=== PATIENT | female | born 1940 | race Caucasian/White ===

== ENCOUNTER 2017-02-17 10:03 | Day surgery (SDC) | payer MEDICARE, BC ==
[2017-02-17] MEDS ORDERED: PROPOFOL 10 MG/ML VIAL IV ONE (10:04)
[2017-02-17] MEDS ORDERED: LIDOCAINE 2% MDV (20MG/ML) 20ML VIAL IV ONE (10:04)
--- NOTE | 2017-02-17 13:50 | Operative Note ---
DATE OF SURGERY: 02/17/2017 OPERATION: COLONOSCOPY with cold snare and hot snare polypectomies and hemoclip application. PREOPERATIVE DIAGNOSIS: Polyps. POSTOPERATIVE DIAGNOSES: 1. Multiple polyps. 2. Sigmoid diverticulosis. PROCEDURE: After informed consent was obtained from the patient, she was placed in the left lateral decubitus position in the endoscopy suite, sedated and monitored by the department of anesthesia. Digital rectal examination was unremarkable. A well-lubricated [id number] colonoscope was inserted into the rectum and advanced into the sigmoid colon where there was a pedunculated polyp removed with a polypectomy snare and ERBE Endocut current. There was some malfunction of the cautery. Some of it was removed with a cold snare. There was minimal bleeding noted at the site. The endoscope was then advanced to the cecum. Preparation quality was good. The cecum and ascending colon were unremarkable. The transverse colon revealed diminutive polyp removed with a cold forceps. The descending colon revealed 3 polyps, 2 removed with a cold forceps and 1 removed with a cold snare. These polyps ranged in size from 4-5 mm. In the sigmoid colon there were 2 additional sessile polyps removed with a cold snare. They ranged in size from 5-6 mm. There was minimal bleeding at one of the sites and as a result, the hemoclip was applied. There was no bleeding that persisted. The previous partially hot snare polypectomy site was observed and another hemoclip was applied to this. There was no bleeding noted at the conclusion of the procedure. There were scattered sigmoid diverticula noted. The rectum was unremarkable in forward and J-turn views. The endoscope was straightened, the rectal ampulla deflated, and the endoscope was removed. RECOMMENDATIONS: The patient should follow a soft low-fiber diet for the next 2 weeks and a high-fiber diet thereafter. I recommend a repeat exam in 3 years pending tissue histology. As always, thank you for allowing me to participate in the healthcare of your patients. CC: Dr. Alcira EL
== END 2017-02-17 12:21 | disposition home or self-care (01) ==
LOC: HOP 10:03
PROVIDERS: ATTEND Internal Medicine Gastroenterology
DX: D12.5 Benign neoplasm of sigmoid colon (principal); D12.3 Benign neoplasm of transverse colon; I10 Essential (primary) hypertension; E78.00 Pure hypercholesterolemia, unspecified

== ENCOUNTER 2018-08-24 11:16 | Day surgery (SDC) | payer MEDICARE, BC ==
[2018-08-24] MEDS ORDERED: FENTANYL PF 100MCG/2ML VIAL IV ONE (11:17)
[2018-08-24] MEDS ORDERED: PROPOFOL 10 MG/ML VIAL IV ONE (11:17)
[2018-08-24] MEDS ORDERED: LIDOCAINE 2% MDV (20MG/ML) 20ML VIAL IV ONE (11:17)
--- NOTE | 2018-08-25 12:20 | Operative Note ---
OPERATION: ESOPHAGOGASTRODUODENOSCOPY with biopsy. PREOPERATIVE DIAGNOSIS: Vague left upper quadrant pain and dyspepsia. POSTOPERATIVE DIAGNOSIS: Irregular Z line and nonerosive gastritis. SPECIMENS: Gastric and GE junction. ESTIMATED BLOOD LOSS: Minimum. COMPLICATIONS: None apparent. PROCEDURE: After informed consent was obtained from the patient, she was placed in the left lateral decubitus position in the endoscopy suite, sedated and monitored by the department of anesthesia. A well-lubricated [id number] gastroscope was placed in the posterior oropharynx under direct visualization and passed to the proximal esophagus. The endoscope was advanced through the proximal, mid, and distal esophagus. The GE junction was slightly irregular with a few columnar islands. No ulcers, erosions, strictures, varices, or mass lesions were seen. The gastric body demonstrated normal distensibility, normal rugal folds. There were some mild patchy antral erythematous changes. No ulcers, strictures, mass lesions were seen. The pylorus duodenal bulb, and sweep were unremarkable. J- turn views of the proximal stomach were unrevealing. The endoscope and random gastric biopsies were obtained. GE junction biopsies were obtained. The endoscope removed from the patient with no new findings noted. RECOMMENDATIONS: I would suggest the patient continue on a daily proton pump inhibitor. I would also recommend a CT of the abdomen if her symptoms persist. As always, thank you for allowing me to participate in the healthcare of your patients. NIKKO
== END 2018-08-24 12:41 | disposition home or self-care (01) ==
LOC: HOP 11:16
PROVIDERS: ATTEND Internal Medicine Gastroenterology
DX: R10.12 Left upper quadrant pain (principal); R10.13 Epigastric pain; Z79.1 Long term (current) use of non-steroidal anti-inflammatories (NSAID); R11.0 Nausea; K31.9 Disease of stomach and duodenum, unspecified; K21.0 Gastro-esophageal reflux disease with esophagitis; I10 Essential (primary) hypertension; E78.00 Pure hypercholesterolemia, unspecified
CPT/HCPCS: 43239; 00731; 88305; J3010